=== PATIENT | female | born 1985 ===

== ENCOUNTER 2025-01-21 14:29 | Outpatient (CLI) | payer OTHER ==
[~2025-01-21] VITALS: Ht 160 cm; Wt 111.7 kg
[2025-01-21 14:58] VITALS: BP 117/80
[2025-01-21] MEDS ORDERED: ECOT81TA5 PO (15:02)
[2025-01-21] MEDS ORDERED: FERR325T3 PO (15:02)
[2025-01-21] MEDS ORDERED: PRENTAB9 PO (15:02)
[2025-01-21] MEDS ORDERED: CHOL20002 PO (15:02)
[2025-01-21] MEDS ORDERED: HOME MED LIST COMPLETE! XX SCH (15:35)
[2025-01-21 17:21] LABS: APPEARANCE, URINE CLEAR (CLEAR); BACTERIA, URINE AUTO 1+ (NEGATIVE); BILIRUBIN, URINE AUTO NEGATIVE (NEGATIVE); BLOOD, URINE BLOOD NEGATIVE (NEGATIVE); GLUCOSE, URINE (UA) AUTO NEGATIVE (NEGATIVE); KETONE, URINE AUTO NEGATIVE (NEGATIVE); LEUKOCYTE ESTERASE, URINE AUTO NEGATIVE (NEGATIVE); MUCUS, URINE SMALL (NEGATIVE); NITRITE, URINE AUTO NEGATIVE (NEGATIVE); PROTEIN, URINE AUTO NEGATIVE (NEGATIVE); RBC, URINE AUTO 0 /HPF (0-3); SPECIFIC GRAVITY URINE AUTO 1.017 (1.002-1.035); SQUAMOUS EPITHELIAL CELL UR AU 3 /HPF (0-6); UROBILINOGEN, URINE AUTO 0.2 mg/dL (0.0-2.0); WBC, URINE AUTO 1 /HPF (0-3)
== END 2025-01-21 20:42 | disposition home or self-care (01) ==
LOC: M LDO 14:29
PROVIDERS: ATTEND Advanced Practice Midwife
DX: O47.03 False labor before 37 completed weeks of gestation, third trimester (principal); O09.523 Supervision of elderly multigravida, third trimester; O99.213 Obesity complicating pregnancy, third trimester; E66.9 Obesity, unspecified; Z3A.36 36 weeks gestation of pregnancy
CPT/HCPCS: 59025; 76811; 76815; 76820; 81001; 87081; 87086; G0463

== ENCOUNTER 2025-02-03 20:02 | Outpatient (CLI) | payer OTHER ==
[~2025-02-03] VITALS: Ht 162.6 cm; Wt 114.8 kg
[~2025-02-03 20:02] MED LIST: CHOL20002 PO; ECOT81TA5 PO; FERR325T3 PO; PRENTAB9 PO
[2025-02-03 20:31] VITALS: BP 130/83
== END 2025-02-03 21:30 | disposition home or self-care (01) ==
LOC: M LDO 20:02
PROVIDERS: ATTEND Obstetrics & Gynecology
DX: O47.1 False labor at or after 37 completed weeks of gestation (principal); O99.213 Obesity complicating pregnancy, third trimester; E66.9 Obesity, unspecified; Z3A.38 38 weeks gestation of pregnancy
CPT/HCPCS: 59025; G0463

== ENCOUNTER 2025-02-07 09:52 | Outpatient (CLI) | payer OTHER ==
[~2025-02-07] VITALS: Ht 160 cm; Wt 113.7 kg
[2025-02-07 10:04] VITALS: BP 135/80
== END 2025-02-07 11:30 | disposition home or self-care (01) ==
LOC: M LDO 09:52
PROVIDERS: ATTEND Obstetrics & Gynecology
DX: O47.1 False labor at or after 37 completed weeks of gestation (principal); Z3A.38 38 weeks gestation of pregnancy
CPT/HCPCS: 59025; G0463

== ENCOUNTER 2025-02-08 08:26 | Inpatient (IN) | payer OTHER ==
[~2025-02-08] VITALS: Ht 160 cm; Wt 115.1 kg
[2025-02-08 08:57] VITALS: BP 134/77
[2025-02-08] MEDS ORDERED: TRANEXAMIC ACID INJection 1,000 MG in NS 100 ML IV PRN (09:30)
[2025-02-08] MEDS ORDERED: METHYLERGONOVINE MALEATE 0.2 MG/ML 1 ML VIAL IM PRN (09:30)
[2025-02-08] MEDS ORDERED: OXYTOCIN DRIP 30 UNITS in IV 1 EA IV PRN (09:30)
[2025-02-08] MEDS ORDERED: LR 1,000 ML IV SCH (09:30)
[2025-02-08] MEDS ORDERED: LIDOCAINE 1% MDV 20 ML VIAL INFIL PRN (09:30)
[2025-02-08] MEDS ORDERED: CARBOPROST TROMETHAMINE 250 MCG/ML AMP IM PRN (09:30)
[2025-02-08 10:39] LABS: PLATELET COUNT, AUTOMATED 246 10^3/uL (150-450)
[2025-02-08 10:54] VITALS: BP 110/66
[2025-02-08] MEDS: miSOPROStol 50 MCG 1/2 TABLET PO SCH (10:54)
[2025-02-08 11:41] LABS: HIV 1&2 SCREEN NEGATIVE (NEGATIVE)
[2025-02-08 11:49] LABS: HEPATITIS C VIRUS ABY INDEX < 0.02 INDEX (<0.8)
[2025-02-08 16:47] VITALS: BP 125/63
[2025-02-08 18:22] VITALS: BP 131/78
[2025-02-08 21:49] VITALS: BP 130/73
[2025-02-09] VITALS (28 sets, daily range): BP systolic 96–141; BP diastolic 52–91
[2025-02-09] MEDS: BUTORPHANOL 2 MG/ML 1 ML VIAL IV ONE (01:42)
[2025-02-09] MEDS ORDERED: diphenhydrAMINE 50 MG/ML VIAL IV PRN (17:25)
[2025-02-09] MEDS ORDERED: NALOXONE INJ 0.4 MG/1 ML VIAL IV PRN (17:25)
[2025-02-09] MEDS ORDERED: EPIDURAL/PCA KEYS XX PRN (17:25)
[2025-02-09] MEDS ORDERED: LR 500 ML IV PRN (17:25)
[2025-02-09] MEDS: FENTANYL/ROPIVACAINE/NACL BAG 100 ML EPIDURAL SCH (17:54)
[2025-02-09] MEDS: LR 1,000 ML IV SCH (17:55)
[2025-02-09] MEDS: OXYTOCIN DRIP 30 UNITS in IV 1 EA IV SCH (18:18)
[2025-02-09] MEDS ORDERED: CALCIUM CARBONATE 500 MG CHEW U/D PO PRN (19:50)
[2025-02-09 22:27] LABS: CORD GAS ABE A -4.7; CORD GAS ABE V -2.7; CORD GAS HCO3 A 25.5 MMOL/L; CORD GAS HCO3 V 23.7 MMOL/L; CORD GAS O2 SAT A 53.1 %; CORD GAS O2 SAT V 68.3 %; CORD GAS PCO2 A 69.6 mmHg; CORD GAS PCO2 V 46.7 mmHg; CORD GAS PH A 7.182 UNITS; CORD GAS PH V 7.323 UNITS; CORD GAS PO2 A 25.7 mmHg; CORD GAS PO2 V 28.3 mmHg; CORD GAS SBC A 19.5 MMOL/L; CORD GAS SBC V 21.5 MMOL/L; CORD GAS TCO2 A 27.6 MMOL/L; CORD GAS TCO2 V 25.1 MMOL/L
[2025-02-09] MEDS ORDERED: METHYLERGONOVINE MALEATE 0.2 MG TAB PO PRN (22:50)
[2025-02-10] MEDS: ONDANSETRON 4MG/2ML VIAL IV PRN (00:25)
[2025-02-10 02:01] VITALS: BP 128/66; O2SAT 97
[2025-02-10 05:39] VITALS: BP 121/76; O2SAT 97
[2025-02-10] MEDS: ACETAMINOPHEN 500 MG TAB PO PRN (06:39)
[2025-02-10] MEDS: IBUPROFEN 800 MG TAB PO PRN (06:40)
[2025-02-10 07:20] VITALS: BP 141/81
[2025-02-10] MEDS: PRENATAL VITAMINS CHEWABLE TABLET PO SCH (09:00)
[2025-02-10] MEDS ORDERED: PRENATAL VITAMINS CHEWABLE TABLET PO SCH (09:00)
[2025-02-10] MEDS: DOCUSATE SODIUM 100 MG CAPSULE PO PRN (09:20)
[2025-02-10] MEDS: SIMETHICONE 80MG CHEW TAB PO PRN (09:20)
[2025-02-10] MEDS: DIBUCAINE 1% OINTMENT 30 GM TOP PRN (09:20)
[2025-02-10] MEDS: ASPIRIN 81 MG ENTERIC TABLET PO SCH (09:21)
[2025-02-10] MEDS: RHOGAM 300MCG (1500IU) INJ IM SCH (13:28)
[2025-02-10 18:00] VITALS: BP 118/65; O2SAT 98
[2025-02-11 06:03] VITALS: BP 113/64; O2SAT 98
[2025-02-11] MEDS ORDERED: MEASLES,MUMPS,RUBELLA VACCINE INJ (MMR-II) SC.IMMUN ONE (09:00)
[2025-02-11] MEDS ORDERED: IBUP80TA PO (09:22)
[2025-02-11] MEDS ORDERED: ACET-683 PO (09:22)
== END 2025-02-11 12:45 | disposition home or self-care (01) | DRG 807 ==
LOC: M LDI 08:26 → M OBS 02-10 02:02
PROVIDERS: ADMIT Advanced Practice Midwife; ATTEND Obstetrics & Gynecology
PROC: 3E0P7GC Introduction of Other Therapeutic Substance into Female Reproductive, Via Natural or Artificial Opening (ICD-10-PCS; 2025-02-08)
PROC: 10E0XZZ Delivery of Products of Conception, External Approach (ICD-10-PCS; principal; 2025-02-09)
DX: O80 Encounter for full-term uncomplicated delivery (principal); Z37.0 Single live birth; Z3A.39 39 weeks gestation of pregnancy